=== PATIENT | male | born 1970 | race Caucasian/White ===

== ENCOUNTER 2020-02-25 11:26 | Inpatient (IN) | payer OTHER ==
[~2020-02-25] VITALS: Ht 188 cm; Wt 116.6 kg
[~2020-02-25 11:26] MED LIST: ACYCLOVIR; FLUOXETINE HCL40 MG PO; LEVAQUIN 500 M500 M2 PO; NORCO 5-325 TA1 EACH PO; NORFLEX100 MG PO; PERCOCET 7.5-31 EACH PO
[2020-02-25 11:45] VITALS: BP 141/92
[2020-02-25 11:56] LABS: ABSOLUTE EOSINOPHILS 0.2 thou/uL (0.0-0.7); ABSOLUTE LYMPHOCYTES 2.7 thou/uL (0.8-5.3); ABSOLUTE MONOCYTES 0.7 thou/uL (0.0-1.2); ABSOLUTE NEUTROPHILS 4.5 thou/uL (1.6-8.1); BASOPHILS 0.3 %; EOSINOPHILS 2.9 %; HEMATOCRIT 54.1 % (42.0-52.0); HEMOGLOBIN 18.1 gm/dL (14.0-18.0); LYMPHOCYTES 33.1 %; MCH 28.9 pg (26.0-34.0); MCHC 33.5 g/dL (28.0-37.0); MCV 86.3 fL (80.0-100.0); MONOCYTES 8.2 %; MPV 7.3 fl. (7.2-11.1); NUCLEATED RBCS 0 /100WBC; PLATELET COUNT* 319 thou/uL (150-400); POLYS 55.5 %; RBC 6.26 mil/uL (4.50-6.00); RDW-CV 14.2 % (10.5-14.5); WBC 8.1 thou/uL (4.0-11.0)
[2020-02-25 12:03] LABS: CALCIUM 8.3 mg/dL (8.5-10.1); CREATININE 1.2 mg/dL (0.6-1.3); POTASSIUM 3.8 mmol/L (3.5-5.1)
[2020-02-25 12:12] LABS: ALBUMIN 3.7 g/dL (3.4-5.0); APTT 26.9 Seconds (25.0-31.3); MAGNESIUM 2.1 mg/dL (1.8-2.4); PROTIME 10.2 Seconds (9.20-11.50); TOTAL BILIRUBIN 0.4 mg/dL (<0.1-1.0); TOTAL PROTEIN 7.7 g/dL (6.4-8.2)
[2020-02-25 17:07] VITALS: BP 121/78
[2020-02-25 20:50] VITALS: BP 132/72
[2020-02-25 21:00] VITALS: BP 127/79
[2020-02-26] VITALS: BP 104/64
[2020-02-26 04:00] VITALS: BP 92/55
[2020-02-26 04:58] LABS: HEMATOCRIT 50.1 % (42.0-52.0); HEMOGLOBIN 16.6 gm/dL (14.0-18.0); MCH 28.5 pg (26.0-34.0); MCHC 33.1 g/dL (28.0-37.0); MCV 86.1 fL (80.0-100.0); MPV 7.5 fl. (7.2-11.1); RBC 5.82 mil/uL (4.50-6.00); RDW-CV 14.3 % (10.5-14.5); WBC 7.7 thou/uL (4.0-11.0)
[2020-02-26 05:24] LABS: CALCIUM 8.3 mg/dL (8.5-10.1); POTASSIUM 4.1 mmol/L (3.5-5.1)
[2020-02-26 08:00] VITALS: BP 124/85
--- NOTE | 2020-02-26 11:38 | EKG ---
[place] [address] ELECTROCARDIOGRAM REPORT Name: STEPHANIE CLARK Room: [place] [address] ADM IN .R.#: [id number] Admission: 02/25/20 Attend Phys: Joe Arceo, Discharge: Date of : 72 Date of Service: 02/25/20 1132 Report #: [id number] THIS REPORT FOR: //name// [facility] ED Test Date: 2020-02-25 Test Time: 11:32:50 Pat Name: STEPHANIE CLARK Department: Room: [facility] Gender: M Tmd Teacher: EMMIE : 1970 Requested By: Anatoliy Velásquez Order Number: [id number] MD: Aaron Butler Measurements Intervals [place] Rate: 153 P: [place]: QRS: -51 QRSD: 109 T: -69 QT: 280 QTc: 447 Interpretive Statements Atrial flutter with varied AV block, LAD, consider left anterior fascicular block Nonspecific repol abnormality, diffuse leads Baseline wander in lead(s) I,II,aVR No previous ECG available for comparison Electronically Signed On 02-26-2020 11:38:21 LEATHER LACER by Aaron Butler [email or web address] <ELECTRONICALLY SIGNED> By: Aaron Butler MD, FACC 02/26/20 1138 1132 1132 Aaron Butler MD, FAC /EPI
--- NOTE | 2020-02-26 11:58 | 2DMMODE ---
[place] [address] 2 D/M-MODE ECHOCARDIOGRAM Name: CLARKSTEPHANIE Olga Room: [facility] ADM IN Jake#: [id number] Admission: 02/25/20 Attend Phys: Joe Arceo, Discharge: Date of : 72 Date of Service: 02/26/20 1158 Report #: [id number] THIS REPORT FOR: cc: FAM - Family physician unknown FAM - Family physician unknown Aaron Butler MD [facility] ~ APPROVED REPORT Study performed: 02/26/2020 10:05:41 EXAM: Comprehensive 2D, Doppler, and color-flow Echocardiogram Patient Location: In-Patient Room #: [facility] Status: routine BSA: 2.39 HR: 87 bpm BP: 124/85 mmHg Rhythm: Atrial Fibrillation Other Information Study Quality: Good Indications Atrial Fibrillation 2D Dimensions IVSd: 15.75 (7-11mm) LVOT Diam: 21.35 (18-24mm) LVDd: 41.67 mm PWd: 13.42 (7-11mm) Ascending Ao: 32.15 (22-36mm) LVDs: 26.40 (25-40mm) Aortic Root: 35.75 mm Volumes Left Atrial Volume (Systole) LA ESV Index: 15.80 mL/m2 Aortic Valve AoV Peak Luis.: 1.15 m/s AO Peak Gr.: 5.28 mmHg LVOT Max P.96 mmHg AO Mean Gr.: 3.06 mmHg LVOT Mean P.80 mmHg LVOT Max V: 0.99 m/s AO V2 VTI: 17.27 cm LVOT Mean V: 0.61 m/s DARSHAN (VTI): 3.08 cm2 LVOT V1 VTI: 14.87 [place] [address] 2 D/M-MODE ECHOCARDIOGRAM Name: STEPHANIE CLARK Room: [address] IN ..#: [id number] Admission: 02/25/20 Attend Phys: Joe Arceo, Discharge: Date of : 72 Date of Service: 02/26/20 1158 Report #: [id number] Mitral Valve E/A Ratio: 1.77 MV Decel. Time: 158.28 ms MV E Max Luis.: 0.74 m/s MV PHT: 45.90 ms MVA (PHT): 4.79 cm2 TDI E/Lateral E': 4.11 E/Medial E': 4.93 Medial E' Luis.: 0.15 m/s Lateral E' Luis.: 0.18 m/s Pulmonary Valve PV Peak Luis.: 0.79 m/s PV Peak Gr.: 2.51 mmHg Left Ventricle The left ventricle is normal size. There is normal LV segmental wall motion. Mild concentric left ventricular hypertrophy. Left ventricular systolic function is normal. The left ventricular ejection fraction is within the normal range. LVEF is 55-60%. This study is not technically sufficient to allow evaluation of the LV diastolic function due to atrial fibrillation. Right Ventricle The right ventricle is normal size. The right ventricular systolic function is normal. Atria The left atrium size is normal. The right atrium size is normal. Aortic Valve The aortic valve is normal in structure. No aortic regurgitation is present. There is no aortic valvular stenosis. Mitral Valve The mitral valve is normal in structure. There is no mitral valve regurgitation noted. No evidence of mitral valve stenosis. Tricuspid Valve The tricuspid valve is normal in structure. Unable to assess PA pressure. Trace tricuspid regurgitation. Pulmonic Valve The pulmonary valve is normal in structure. There is no pulmonic [place] [address] 2 D/M-MODE ECHOCARDIOGRAM Name: STEPHANIE CLARK Room: [address] IN [facility]#: [id number] Admission: 02/25/20 Attend Phys: Joe Arceo, Discharge: Date of : 72 Date of Service: 02/26/20 1158 Report #: [id number] Great Vessels The aortic root is normal in size. IVC is normal in size and collapses >50% with inspiration. Pericardium There is no pericardial effusion. <Conclusion> Mild concentric left ventricular hypertrophy. LVEF is 55-60%. <ELECTRONICALLY SIGNED> By: Aaron Butler MD, FACC 02/26/20 1158 1158 1158 Aaron Butler MD, FACC /INF
[2020-02-26 12:06] VITALS: BP 101/68
[2020-02-26 15:56] VITALS: BP 119/78
[2020-02-26] MEDS ORDERED: FLECAINIDE ACET50 M1 PO (17:01)
[2020-02-26] MEDS ORDERED: DILTIAZEM 24HR180 M1 PO (17:01)
[2020-02-26 17:32] VITALS: BP 119/78
--- NOTE | 2020-02-27 07:50 | CON ---
[address] [address] CONSULTATION Name: EDUARDOSTEPHANIE E Room: [address] IN M.R.#: [id number] Admission: 02/25/20 Attend Phys: Joe Arceo MD Discharge: 02/26/20 Date of : 72 Report #: [id number] THIS REPORT FOR: //name// cc: FAM - Family physician unknown FAM - Family physician unknown ~ INDICATION: New onset atrial fibrillation with rapid ventricular response rate HISTORY OF PRESENT ILLNESS: The patient is a very pleasant 49-year-old gentleman who developed atrial fibrillation with rapid ventricular response rate last night after physical exertion. The patient was able to fall asleep, but upon waking up and felt that his heart rhythm was still irregular. He presented to the emergency room for further evaluation. He was found to be in atrial fibrillation with a rapid ventricular response rate. He is not having any chest pain with this. The states that he did have some possible jaw pain and mild shortness of breath. The patient was placed on a diltiazem drip with control of his rate. He remains in atrial fibrillation. He still has mild palpitations, but is otherwise feeling well. He denies any prior cardiac history. His only physical complaint is runny nose and a cough for the past month. He was COVID tested a month ago and was negative. PAST MEDICAL HISTORY: 1. Depression. 2. Restless leg syndrome. 3. Right inguinal hernia repair as a 5-year-old. 4. Dental extraction. 5. Genital herpes. HOME MEDICATIONS: Fluoxetine daily, ibuprofen p.r.n. ALLERGIES: PENICILLIN AND CODEINE. SOCIAL HISTORY: The patient smokes cigarettes daily, drinks alcohol rarely. He is . His is in attendance with him. REVIEW OF SYSTEMS: He denies fevers, chills, sweats. He is having no nausea, vomiting or diarrhea. He has no chest pain. He denies any significant shortness of breath, orthopnea or paroxysmal nocturnal dyspnea. He is without any other complaint at this time. PHYSICAL EXAMINATION: VITAL SIGNS: Stable. Blood pressure 141/92, pulse is in the 90s and irregular. GENERAL: This is a healthy-appearing, pleasant gentleman in no distress. Mood and affect appropriate. HEENT: Head is normocephalic, atraumatic. Extraocular muscles intact. [place] [address] CONSULTATION Name: STEPHANIE CLARK Room: [address]#: [id number] Admission: 02/25/20 Attend Phys: Joe Arceo MD Discharge: 02/26/20 Date of : 72 Report #: [id number] NECK: Shows no jugular venous distention. CHEST: Reveals clear lung perez without wheezes or rales. CARDIOVASCULAR: Reveals an irregularly irregular rhythm without gallop or murmur. Rate is adequately controlled. ABDOMEN: Reveals normal bowel sounds. The abdomen is soft, nontender. EXTREMITIES: Shows no edema. Peripheral pulses are 2+ and easily palpable. SKIN: Dry. LABORATORY DATA: A 12-lead EKG shows atrial fibrillation with a rapid ventricular response rate. There are no acute ST or T-wave abnormalities noted. Chest x-ray shows no acute abnormalities. Labs are reviewed. Electrolytes within normal limits. BUN 12, creatinine 1.2, serum glucose 95. Troponins less than 0.06. NT-proBNP 890. White blood cell count 8.1, hemoglobin 18.1, platelet count 319,000. IMPRESSION AND RECOMMENDATIONS: 1. New onset atrial fibrillation with rapid ventricular response rate. We will continue diltiazem drip and consider the addition of antiarrhythmic medication if the patient fails to convert. We will obtain echocardiogram. We will obtain stress testing in a.m. 2. We will also check thyroid function studies to rule out hyperthyroidism. 3. Borderline hypertension. Blood pressure minimally elevated at present. We will follow clinically at this time. <ELECTRONICALLY SIGNED> By: Jah Mena MD, FACC 02/27/20 0750 1318 1433[facility] Centertimothy Mena MD, FACC /nt
== END 2020-02-26 17:50 | disposition home or self-care (01) | DRG 309 ==
LOC: M.ERS 11:26 → M.2W 12:53 → M.TBA-ER 12:53 → M.2W 20:44
PROVIDERS: Emergency Medicine Emergency Medical Services; ADMIT Internal Medicine; ATTEND Internal Medicine
DX: I48.92 Unspecified atrial flutter (principal); D68.69 Other thrombophilia; I48.91 Unspecified atrial fibrillation; I95.2 Hypotension due to drugs; F32.9 Major depressive disorder, single episode, unspecified; Z20.828 Contact with and (suspected) exposure to other viral communicable diseases; G25.81 Restless legs syndrome; E66.9 Obesity, unspecified; I43 Cardiomyopathy in diseases classified elsewhere; Z79.899 Other long term (current) drug therapy; Z88.5 Allergy status to narcotic agent; Z91.010 Allergy to peanuts; Z68.33 Body mass index [BMI] 33.0-33.9, adult; Z79.01 Long term (current) use of anticoagulants